=== PATIENT | female | born 1945 | race Caucasian/White ===

== ENCOUNTER 2016-11-25 20:09 | Emergency (ER) | payer MEDICARE ==
[~2016-11-25] VITALS: Ht 160 cm; Wt 68.0 kg
[2016-11-25] MEDS ORDERED: HYDROCODONE BIT1 T11 PO (21:31)
== END 2016-11-25 21:34 | disposition home or self-care (01) ==
LOC: ED 20:09
DX: S52.502A Unspecified fracture of the lower end of left radius, initial encounter for closed fracture (principal); S52.615A Nondisplaced fracture of left ulna styloid process, initial encounter for closed fracture; R11.0 Nausea; Z88.8 Allergy status to other drugs, medicaments and biological substances; W18.39XA Other fall on same level, initial encounter; Y93.89 Activity, other specified; Y92.89 Other specified places as the place of occurrence of the external cause; Y99.8 Other external cause status

== ENCOUNTER → 2021-03-09 | Outpatient (CLI) | payer MEDICARE, BC ==
[~2021-03-09] MED LIST: HYDROCODONE BIT1 T11 PO
== END | disposition home or self-care (01) ==
LOC: COVID19 15:08
PROVIDERS: ATTEND Internal Medicine
DX: U07.1 COVID-19 (principal)